=== PATIENT | female | born 2005 | race Caucasian/White ===

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

== ENCOUNTER 2025-03-03 08:00 | Outpatient (RCR) | payer BC, SELFPAY ==
--- NOTE | 2025-03-03 09:05 | BH.SGPN.GN ---
Behaviors/Verbalizations/Mental Status: [] Eye contact is poor. Motor activity is appropriate. Appearance is casual. Speech is Appropriate. Mood is depressed and anxious. Affect is flat. Thoughts are linear and logical. No evidence of psychosis. Reviewed daily check in sheet and no reports of suicidal ideations or intent. Client Response/Progress/Benefit: [] Pt participated at times in group discussions. Attentive. This was pt?s first day in IOP. Briefly introduced herself and discussed basic goals which included ?looking for tools and coping skills? for depression and anxiety. Also reports ?guidance though grief?. She admitted that she is anxious. Group welcomed her to the program and provided empathy and feedback for her first day in IOP which was beneficial. No progress noted as this was her first day in [facility]. Will continue in IOP to prevent decompensation, increase healthy coping, and improve functioning.? Narrative Note: []
--- NOTE | 2025-03-03 09:05 | BH.SGPN.GN ---
Behaviors/Verbalizations/Mental Status: [] Eye contact is poor. Motor activity is appropriate. Appearance is casual. Speech is Appropriate. Mood is depressed and anxious. Affect is flat. Thoughts are linear and logical. No evidence of psychosis. Reviewed daily check in sheet and no reports of suicidal ideations or intent. Client Response/Progress/Benefit: [] Pt participated at times in group discussions. Attentive. This was pt?s first day in IOP. Briefly introduced herself and discussed basic goals which included ?looking for tools and coping skills? for depression and anxiety. Also reports ?guidance though grief?. She admitted that she is anxious. Group welcomed her to the program and provided empathy and feedback for her first day in IOP which was beneficial. No progress noted as this was her first day in [facility]. Will continue in IOP to prevent decompensation, increase healthy coping, and improve functioning.? Narrative Note: []
--- NOTE | 2025-03-03 10:05 | BH.SGPN.GN ---
Behaviors/Verbalizations/Mental Status: []Pt alert and oriented, neatly dressed and groomed. Eye contact fair Motor activity appropriate. Speech within normal limits. Affect congruent, mood anxious. Thoughts linear, logical, no signs of hallucinations or delusions. Client Response/Progress/Benefit: [] Pt participated in the group discussions AEB providing input, nodding and taking notes. Attentive during psychoeducation Goal Setting. Participated during the discussion on common barriers. Pt worked with group to identify common barriers to goal setting and pt reported limited access to opportunities and negative self-talk. Group also identified benefits of goals as sense of purpose, improved self-confidence, more motivation for other goals, sense of accomplishment, and improved mental health. Pt identified personal benefits to goal setting. Benefited from increased awareness of mental health benefits of goals as well as psychoeducation on SMART goal criteria. Will continue in IOP to prevent decompensation, gain healthy coping skills, and reduce negative self-talk. ? Narrative Note: []
--- NOTE | 2025-03-03 11:05 | BH.SGPN.GN ---
Behaviors/Verbalizations/Mental Status: [] Pt alert and oriented. Appearance is casual, hygiene is appropriate. Eye contact good. Motor activity appropriate. Speech within normal limits. Affect is anxious, depressed. Mood is constricted. Thoughts linear, logical, no signs of hallucinations or delusions. Client Response/Progress/Benefit: [] Pt was engaged during discussion and experiential activity. Completed the worksheet challenging them to develop a personal SMART goal. Pt chose a SMART goal to Do 1 thing on her 'to-do' list hygiene every day this week. Believes this goal will benefit them being through feeling less stressed and overwhelmed, as well as make time for herself. Identified obstacles such as motivation and feeling overwhelmed .Benefited from this group by developing a short-term SMART goal related to mental health. Will continue IOP to prevent decompensation, stabilize mood, and improve functioning Narrative Note: []
--- NOTE | 2025-03-06 09:05 | BH.SGPN.GN ---
Behaviors/Verbalizations/Mental Status: [] Eye contact is poor. Motor activity is appropriate. Appearance is casual. Speech is Appropriate. Mood is depressed. Affect is flat. Thoughts are linear and logical. No evidence of psychosis. Reviewed daily check in sheet and no reports of suicidal ideations or intent. Client Response/Progress/Benefit: [] Pt participated at times during the group discussions. Attentive. Daily symptom tracker notes 4/5 for depression and 3/5 for anxiety/irritability. She shared several stressors which had been impacting her mental health and functioning. Participated mostly in group discussions on the importance of support and empathy rather than attempting to problem solve individuals who are struggling. Limited progress noted. Benefited from group support, enocouragement, and feedback. Will continue in IOP to prevent decompensation, stabilize mood, and increase healthy coping. Narrative Note: []
--- NOTE | 2025-03-06 11:15 | BH.SGPN.GN ---
Behaviors/Verbalizations/Mental Status: []Client alert and oriented, neatly dressed and groomed. Eye contact good. Motor activity appropriate. Speech within normal limits. Affect congruent, mood depressed and anxious. Thoughts linear, logical, no signs of hallucinations or delusions. Client Response/Progress/Benefit: [] Pt engaged participant AEB completing self-assessment worksheet and providing input throughout discussion. Pt completed worksheet identifying current self-care practices and what self-care activities Pt wants to start using. Pt selected psychological self-care to begin practicing more consistently. Pt plans to do this by ?getting more sunlight.? Appeared to benefit from completing the self-care evaluation and gaining insights into current self-care practices, as well as identifying areas in which Pt would like to improve upon. Pt will continue IOP tx to prevent decompensation, gain self-confidence, and increase distress tolerance skills. Narrative Note: []
--- NOTE | 2025-03-06 11:15 | BH.SGPN.GN ---
Behaviors/Verbalizations/Mental Status: [] Client alert and oriented, casually dressed and groomed. Eye contact fair. Motor activity appropriate. Speech within normal limits. Affect constricted, mood depressed and anxious. Thoughts linear, logical, no signs of hallucinations or delusions Client Response/Progress/Benefit: [] Client was an active participant, AEB taking notes and providing input in group discussions and activities. Attentive during psychoeducation. Client engaged during interactive discussion in which the group defined self-care and discussed its benefits. Group discussed barriers to engaging in self-care, reports connecting with barrier of feeling she doesn't deserve it. Client participated in small groups where they worked to identify common self-care ?myths?. Benefited from increased awareness of self-care, its benefits, and the consequences of not utilizing self-care strategies. Will continue IOP tx to prevent decompensation, promote healthy coping skill application, and increase functioning. Narrative Note: []
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
--- NOTE | 2025-03-07 14:23 | BH.MDN ---
Multi-Disciplinary Note Note 45-min Individual: Time Started:: 11:00 Date: 03/07/25 Purpose of session/treatment goals addressed:: Purpose of session was to build rapport, gather background information, and identify treatment goals. Eye Contact:: Good Motor Activity:: Appropriate Appearance:: Casual Speech:: Appropriate Mood:: Anxious and Depressed Affect:: Congruent Thoughts:: Linear, Logical and No evidence of hallucinations/delusions noted Staff Interventions:: psychoeducation on: (cognitive triangle), CBT techniques, rapport building, strengths perspective and treatment planning Client Response:: Client reported she was referred to IOP by her family because her brother previously completed this program and found it helpful. Client shared she has been struggling with increased mental health problems after of her father in the fall. [place] that this brought up a lot of unresolved trauma. States that her father was a drug addict and suddenly. Reports that she has been feeling guilty since this time. Didn't have a lot of contact for the past several years, and relationship was strained. Mom had called her and told her that he had passed, they had been split. Father had texted her relatively close to when he had passed. Client stated feeling guilty about not responding to her father's text messages. Client endorses feeling depressed with low energy, low motivation, anhedonia, excessive guilt, and passive thoughts of . Client denies active suicidal thoughts, plan, or intention. Client stated while she is in IOP she would like to learn healthier coping skills to manage her moods more effectively. Client also would like to work on her guilt and negative thoughts about her father's passing. Client responded well to psychoeducation about cognitive triangle and behavior activation. Client created behavior activation goal for weekend of calling back her grandma and reaching out to friends to hang out this weekend. Risks/Concerns:: Denies active suicidal ideation, plan, or intention to date. future oriented. Progress Toward Goals/Plan:: No progress observed, first week in program. Client would like to learn healthy coping skills to manage her emotions and depression more effectively. Client also would like to work on building her self-compassion and view of self. Client to continue IOP to increase healthy coping, improve view of self, and prevent decompensation. Time Stopped:: 11:45
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
--- NOTE | 2025-03-07 14:25 | BH.MTP_ITS ---
Master Treatment Plan Patient Information Program Physician:: Dr. Ellis & Dr. Andersen Primary Therapist:: Katy Low, [facility] Psychiatric Diagnoses Psychiatric Diagnoses:: Post Traumatic Stress Disorder, ADHD, and Cluster B traits Diagnosis Code(s):: F43.1 Estimated LOS Estimated LOS (in weeks):: 6 Problem/Goal #1 Problem/Goal #1 Stated Goal:: Client will reduce depression, feelings of hopelessness, and anhedonia through Intensive Outpatient Program. Description of Barriers: Potential barriers include cognitive distortions, history of difficulty making appointments on time, negative thought patterns, and sleep issues. Functional Impact: Pt presents to [facility] due to worsening depression and anxiety since the of her father. Pt reports this brought up a lot of unresolved trauma. States that her father was a drug addict and suddenly. Reports that she has been feeling guilty since this time. Didn't have a lot of contact for the past several years, and relationship was strained. Patient endorses anhedonia, low energy, fair to poor concentration, decreased appetite, worsening anxiety, intense emotional outburst, and nightmares. Objectives Objective #1: Stated Objective: Client will learn and utilize 2-3 healthy coping strategies to manage depressive symptoms. Interventions: Therapist will utilize CBT techniques to assist client with understanding the connection between thoughts, feelings and behaviors. Education will be provided on behavioral activation. Therapist will assist client in learning internal coping strategies to manage depressive symptoms, along with helping client identify triggers. Discharge Criteria: Client will have achieved this goal when can verbalize and has practiced at least 2 healthy coping strategies that successfully manage depressive symptoms. Target Date: 04/14/25 Review Date: 03/31/25 Objective #2: Stated Objective: Client will identify and replace 2-3 negative thinking patterns that reinforce feelings of depression and hopelessness. Interventions: Assist the client in identifying, challenging, and replacing dysfunctional thoughts with positive self-enhancing thoughts. Discharge Criteria: Client will have achieved this goal when can identify at least 2 negative thinking patterns and replace thoughts with rational thoughts. Target Date: 04/14/25 Review Date: 03/31/25 Problem/Goal #2 Problem/Goal #2 Stated Goal:: Client will reduce overall frequency, intensity, and duration of the anxiety so that daily functioning is not impaired.? Description of Barriers: Potential barriers include cognitive distortions, history of difficulty making appointments on time, negative thought patterns, and sleep issues. Functional Impact: Pt presents to [facility] due to worsening depression and anxiety since the of her father. Pt reports this brought up a lot of unresolved trauma. States that her father was a drug addict and suddenly. Reports that she has been feeling guilty since this time. Didn't have a lot of contact for the past several years, and relationship was strained. Patient endorses anhedonia, low energy, fair to poor concentration, decreased appetite, worsening anxiety, intense emotional outburst, and nightmares. Objectives Objective #1: Stated Objective: Client will learn and implement 2-3 calming skills to reduce overall anxiety and manage anxiety symptoms. Interventions: Therapist and group sessions will help client identify physiological warning signs of anxiety, increase awareness of thoughts that increase anxiety, and identify behaviors that reinforce anxious symptoms. Group and individual counseling will teach client calming skills to help manage anxious symptoms. Discharge Criteria: Client will have achieved this goal when can verbalize at least 2 calming skills and reports skills successfully help reduce anxious symptoms. Target Date: 04/14/25 Review Date: 03/31/25 Objective #2: Stated Objective: Client will identify 2-3 anxiety triggers and 2 coping skills to use when feeling anxious. Interventions: Therapist and group sessions will assist client in exploring what triggers anxiety and teach client coping strategies to effectively manage anxiety symptoms. Discharge Criteria: Client will have met this goal when can identify at least 2 triggers to anxiety and verbalize two healthy ways to cope with feelings of anxiety. Target Date: 04/14/25 Review Date: 03/31/25
--- NOTE | 2025-03-10 06:10 | PCM.BH.PSYEV ---
Psychiatric Evaluation Initial Evaluation Initial Evaluation: Initial Treatment Plan Patient Information Visit Information: ADMISSION DATE: 03/03/2025 EXPECTED LOS: 4-6 weeks Problems/Symptoms Problem #1:: Depression Symptom:: Sadness, hopelessness, worthlessness, anhedonia, low energy Problem #2:: Anxiety Symptom:: Rumination, worry, recent history of panic attacks and panic, nightmares, avoidance, flashbacks with triggers
--- NOTE | 2025-03-10 10:10 | BH.SGPN.GN ---
Behaviors/Verbalizations/Mental Status: [] Eye contact is good. Motor activity is appropriate. Appearance is casual. Speech is Appropriate. Mood is dysthymic. Affect is congruent. Thoughts are linear and logical. No evidence of psychosis. Client Response/Progress/Benefit: [] Pt was an active participant in group discussions. Attentive during psychoeducation on the 4 communication styles (Passive, Passive-Aggressive, Aggressive, and Assertive) and the obstacles to effective communication. Contributed during interactive discussion on the benefits of communicating effectively. Worked well with peers to identify the benefits and disadvantages to the different communication styles. Pt believes that she can be assertive with certain people and other times she can be passive and recognizes her needs don't get met when passive. Benefited from increased understanding of communication styles and how these can impact effective communication. Will continue in IOP to challenge negative thoughts, increase coping, and prevent decompensation.
--- NOTE | 2025-03-10 11:00 | BH.SGPN.GN ---
Behaviors/Verbalizations/Mental Status: []Pt alert and oriented, casually dressed and groomed. Eye contact good. Motor activity appropriate. Speech within normal limits. Affect congruent, mood anxious. Thoughts linear, logical, no signs of hallucinations or delusions. Client Response/Progress/Benefit: [] Pt responded well to session AEB Pt listening attentively to others and providing input during group discussion on the pay offs and costs of the different communication styles. Pt able to connect how current communication style impacts mental health. Connected with peers? comments about the importance of using assertive communication. Pt seemed to benefit from increasing awareness of healthy strategies to improve communication and worked with group during the experiential activity to practice assertive communication. Will continue IOP tx to prevent decompensation, gain healthy coping skills, and reduce negative thought patterns. Narrative Note: []
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
--- NOTE | 2025-03-13 09:05 | BH.SGPN.GN ---
Behaviors/Verbalizations/Mental Status: [] Eye contact is good. Motor activity is appropriate. Appearance is casual. Speech is Appropriate. Mood is depressed and irritable. Affect is congruent. Thoughts are linear and logical. No evidence of psychosis. Reviewed daily check in sheet and no reports of suicidal ideations or intent. Client Response/Progress/Benefit: [] Pt was an active participant in group discussions. Attentive. Daily symptom tracker notes 4/5 for depression and 3/5 for anxiety/agitation. Also reports 2/5 for self-harm urges. Overall reports mood and functioning are ?worse?. Mental health win is that she has been medication compliant. Shared her struggles to attend IOP due to anxiety and depression in the AM. ?I just want to be in bed?. Feeling ?bitter?. Increased grief this week with trigger being Father?s Day. Limited progress noted. Inconsistent. Will continue in IOP to prevent decompensation, stabilize mood, and improve functioning. Narrative Note: []
--- NOTE | 2025-03-13 10:15 | BH.SGPN.GN ---
Behaviors/Verbalizations/Mental Status: []Pt alert and oriented, casually dressed and groomed. Eye contact good. Motor activity appropriate. Speech within normal limits. Affect congruent, mood euthymic. Thoughts linear, logical, no signs of hallucinations or delusions. Client Response/Progress/Benefit: [] Pt an active participant in group discussions on defining conflict (internal/external) and possible benefits to conflict. Attentive during psychoeducation on conflict styles (avoidant, accommodating, competing, cooperative) and engaged during group discussion in which peers identified the benefits and consequences to each conflict style. Pt identified that she tends to be mostly the competing type and that she and her mother can ?get into it? but pt also is accommodating which can lead to resentment. Benefited from increased awareness of the impact of conflict styles in mental health. Will continue in IOP tx to reduce negative self-talk, improve daily functioning, and increase mood stability. ? Narrative Note: []
--- NOTE | 2025-03-13 11:15 | BH.SGPN.GN ---
Behaviors/Verbalizations/Mental Status: []Client alert and oriented, casually dressed and groomed. Eye contact fair. Motor activity appropriate. Speech within normal limits. Affect congruent, mood euthymic and anxious. Thoughts linear, logical, no signs of hallucinations or delusions. Client Response/Progress/Benefit: [] Pt engaged in session AEB contributing to discussion and engaging in small group. Attentive during discussion on strategies for more effectively managing conflict in personal life. Pt noted current conflict resolution style uses the most is accommodating and competing. Could connect impact this has on her mental health. Pt participated in small group for activity and did well practicing how to manage conflict scenarios. Pt given handout on fair fighting rules and how to identify common conflict barriers. Appeared to benefit from gaining strategies to help Pt better manage conflict. Will continue IOP tx improve distress tolerance, challenge distortions, and prevent decompensation.
--- NOTE | 2025-03-19 09:00 | BH.SGPN.GN ---
Behaviors/Verbalizations/Mental Status: [] Client alert and oriented, casual appearance. Eye contact good. Motor activity appropriate. Speech within normal limits. Affect congruent, mood irritable. Thoughts linear, logical, no signs of hallucinations or delusions. Reviewed client's symptom tracker, no risk for suicidal ideation, plan, or intent. Client Response/Progress/Benefit: [] Client responded well to session AEB listening to others and sharing thoughts/feelings. Client reported mental positive as showing up today despite not wanting to get out of bed. Client stated her mom helped her get here today. Client reported that she will not have positive as over the weekend effectively dealing with a complex situation with one of her friends by setting a boundary. Client noted current stressor was having to deal with Father's Day which is the first Father's Day since her father . Appeared to benefit from support from peers. Will continue IOP tx to increase healthy coping skills, improve distress tolerance, and prevent decompensation. Narrative Note: []
--- NOTE | 2025-03-19 10:00 | BH.SGPN.GN ---
Behaviors/Verbalizations/Mental Status: []Pt alert and oriented, neatly dressed and groomed. Eye contact good. Motor activity appropriate. Speech within normal limits. Affect congruent, mood depressed. Thoughts linear, logical, no signs of hallucinations or delusions. Client Response/Progress/Benefit: [] Pt was an active participant in group discussion and experiential activity. Attentive during psychoeducation on resilience and provided input throughout. Participated in interactive discussion with peers on the definition of resilience and where it comes from. Group identified that resiliency can be impacted by; past experiences, upbringing, and personality traits. Able to relate experiential activity of group juggle to topics of resilience. Worked with peers in small group in which they identified factors that contribute to resilience and did well providing ideas. Benefited from increased awareness of resilience and the factors that contribute to building resilience. Will continue in IOP tx to improve self-compassion, combat distortions, and improve daily functioning. ? Narrative Note: []
--- NOTE | 2025-03-19 11:00 | BH.SGPN.GN ---
Behaviors/Verbalizations/Mental Status: [] Eye contact is good. Motor activity is appropriate. Appearance is disheveled. Speech is Appropriate. Mood is depressed. Affect is congruent. Thoughts are linear and logical. No evidence of psychosis. Client Response/Progress/Benefit: [] Pt responded well to session AEB completing the resilience worksheet provided. Pt actively participated in the discussion and worked cooperatively with group to identify strategies to enhance each of the components discussed. Pt reports belief they already use resilience trait of ?making connections and accepting that change is part of living.? Pt was able to identify areas related to resilience to focus on in the future. Pt seemed to benefit from discussing strategies for improving personal resilience and identifying resilience traits Pt already possesses. Will continue IOP tx to prevent decompensation, stablize mood, and to increase healthy coping. Narrative Note: []
--- NOTE | 2025-03-21 09:00 | BH.SGPN.GN ---
Behaviors/Verbalizations/Mental Status: []Pt alert and oriented, neatly dressed and groomed. Eye contact fair. Motor activity appropriate. Speech within normal limits. Affect congruent, mood irritable and depressed. Thoughts linear, logical, no signs of hallucinations or delusions. Reviewed pt?s symptom tracker, no risk for suicidal ideation, plan, or intent 03/21/25. Client Response/Progress/Benefit: []Pt was an active participant in group discussions. Attentive. Able to identify mental health wins including ?I don?t really have much today, I can?t think of wins.? The group helped pt identify wins such as getting to IOP today and pt recently moving into a new place. Pt's stressor today is ?I got here late.? The group offered pt encouragement and emotional support which pt reported was helpful. Pt is feeling tired? this morning. Pt receptive to feedback from peers which pt reported was helpful. Progress noted. Benefited from group support, encouragement, and feedback. Will continue IOP tx to increase distress tolerance skills, reduce negative self-talk, and improve mood stability. Narrative Note: []
--- NOTE | 2025-03-21 10:10 | BH.SGPN.GN ---
Behaviors/Verbalizations/Mental Status:?[] Client alert and oriented, casually dressed and groomed. Eye contact good. Motor activity appropriate. Speech within normal limits. Affect congruent, mood anxious, euthymic. Thoughts linear, logical, no signs of hallucinations or delusions. Client Response/Progress/Benefit:?[] Pt engaged in session AEB client listening attentively to peers and providing input. Attentive and contributed to discussion as group worked on defining?self-confidence?and identifying benefits of?self-confidence, as well as factors that can effect?self-confidence?levels. Pt was an active participant in activity in which the group read and processed each right on the Personal Bill of Rights worksheet. Pt identified the rights they struggle with believing. Benefited from increased education on?self-confidence?and what effects it. Pt will continue IOP tx to improve view of self, challenge distorted thoughts,, and prevent decompensation.
--- NOTE | 2025-03-21 14:49 | BH.MDN ---
Multi-Disciplinary Note Note 60-min Individual: Time Started:: 11:14 Date: 03/21/25 Purpose of session/treatment goals addressed:: Purpose of session was to address goals 1 and 2 from MTP. Eye Contact:: Good Motor Activity:: Appropriate Appearance:: Casual Speech:: Appropriate Mood:: Anxious and Dysthymic Affect:: Congruent Thoughts:: Racing and No evidence of hallucinations/delusions noted Staff Interventions:: thought challenging, CBT techniques, strengths perspective, goal setting and taught coping skills Client Response:: Client reported she has been taking the new medication at night and has noticed that it is helped her with falling asleep. Client stated she did not complete the homework of writing down daily ones. Client stated she really had a hard time giving herself credit because to her a win is something much more and just getting a task done. Client and therapist discussed what her definition of a win is which she realized often means perfection in her eyes. Client recognizes her definition of what progress is or what is positive in her life often is a set up for herself as a failure. Client and therapist discussed different ways of reframing or challenging her expectations of self which often tend to lead to negative thought patterns and reinforces depressed symptoms. Therapist reviewed a thought log with client and walked through an example of how to complete. In the thought log client is to identify a negative or distorted thought she has had and answer various questions that help guide her with reframing the thought. Client encouraged to bring thought log back to next session for review. Risks/Concerns:: Denies suicidal ideation, plan, or intention to date. future oriented. Progress Toward Goals/Plan:: Progress noted with client reporting improved sleep. Client continuing to struggle with negative thoughts about self and difficulty giving herself credit for things she does. Client recognizes her high expectations of self negatively impact her view of self and perpetuate feelings of not being good enough. Client has good insight and awareness to her behaviors that negatively impact her, but struggles with applying the skills that could help manage her symptoms. Client open to completing thought log and practicing reframing negative thoughts. Plan is for client to continue IOP to improve view of self, increase consistent use of healthy coping skills, and prevent decompensation. Time Stopped:: 12:15
--- NOTE | 2025-03-25 09:05 | BH.SGPN.GN ---
Behaviors/Verbalizations/Mental Status: [] Eye contact is good. Motor activity is appropriate. Appearance is casual. Speech is Appropriate. Mood is depressed. Affect is flat. Thoughts are linear and logical. No evidence of psychosis. Reviewed daily check in sheet and no reports of suicidal ideations or intent. Client Response/Progress/Benefit: [] Pt participated at times. Shared increased anxiety and irritability. Difficulty sleeping due to rumination on health (heart issues, having a heart attack). Long-standing struggles with health anxiety however worsening since her father passed aware from unknown reasons possible related to heart. Struggling to ?shut my mind off? long enough to fall asleep. Along with all this she also chooses to quit smoking. Several stressors and mental health symptoms. Group provide support and offered feedback which was beneficial. Limited progress noted. Will continue in IOP to prevent decompensation, stabilize mood, and increase healthy coping. Narrative Note: []
--- NOTE | 2025-03-25 10:15 | BH.SGPN.GN ---
Behaviors/Verbalizations/Mental Status: []Pt alert and oriented, neatly dressed and groomed. Eye contact good. Motor activity appropriate. Speech within normal limits. Affect congruent, mood content, anxious, depressed. Thoughts linear, logical, no signs of hallucinations or delusions. Client Response/Progress/Benefit: [] Pt participated during the group discussion, providing input and remaining attentive during psychoeducation. Participated in experiential activity. Pt contributed during interactive discussion on the consequences of unhealthy expression of emotions. Worked with group to identify several consequences which included hurting relationships and isolating oneself. Contributing during interactive discussion on common potholes to effectively communicating. Pt was able to relate and make connections between the experiential activity and the overall topic, managing emotions through activity by slowing down and thought challenging. Benefited from increased awareness of how stress and emotions can impact one's ability to communicate. Will continue in IOP to prevent decompensation, increase emotional regulation skills, and improve daily functioning. Narrative Note: []
--- NOTE | 2025-03-25 11:15 | BH.SGPN.GN ---
Behaviors/Verbalizations/Mental Status: [] Eye contact is good. Motor activity is appropriate. Appearance is disheveled. Speech is Appropriate. Mood is depressed. Affect is congruent. Thoughts are linear and logical. No evidence of psychosis. Client Response/Progress/Benefit: [] Client engaged in session AEB client listening attentively to peers and providing input. Attentive during psychoeducation on 4 zones of regulation. Pt able to identify feelings and behaviors for each zone. Pt identified coping skills one can use to support self in each zone. Pt stated belief that pt is in the blue zone today. Pt reports she must do something other than rot to move herself closer to the green zone today. Benefited from increased education on zones of regulation or stages of alertness for emotions and healthy coping skills to use for each zone. Pt will continue IOP tx to prevent decompensation, increase healthy coping, and improve functioning. Narrative Note: []
--- NOTE | 2025-03-26 09:05 | BH.SGPN.GN ---
Behaviors/Verbalizations/Mental Status: [] Eye contact is good. Motor activity is appropriate. Appearance is disheveled. Speech is Appropriate. Mood is depressed and anxious. Affect is congruent. Thoughts are linear and logical. No evidence of psychosis. Reviewed daily check in sheet and no reports of suicidal ideations or intent. Client Response/Progress/Benefit: [] Pt participated at times. Attentive. Daily symptom tracker notes 5/5 for depression and 4/5 for anxiety/irritability. Emotion for today is ?tired?. Poor sleep this week due to anxiety and worry. Limited progress. Struggling with consistent attendance at IOP finding internal coping skills to help with significant ruminations and negative thoughts. Will continue in IOP to prevent decompensation, increase healthy coping, and improve functioning Narrative Note: []
--- NOTE | 2025-03-26 10:10 | BH.SGPN.GN ---
Behaviors/Verbalizations/Mental Status: [] Eye contact is good. Motor activity is appropriate. Appearance is casual. Speech is Appropriate. Mood is dysthymic. Affect is constricted. Thoughts are linear and logical. No evidence of psychosis. Client Response/Progress/Benefit: [] Pt engaged in session AEB listening attentively to others and providing input throughout. Pt engaged in activity, able to connect how it can be uncomfortable and difficult to practice acceptance when situations are out of one?s own control. Identified she is struggling with accepting past choices. Worked with peer group to define acceptance and identify the benefits that acceptance can bring. Benefits included; reduce stuckness, reduced stress, helps one to focus on situations we can change, and decreased negative self-talk. Seemed to benefit from increased awareness of the meaning as well as the importance of acceptance. Will continue in IOP to prevent decompensation, challenge distorted thoughts, and improve view of self.
--- NOTE | 2025-03-26 14:05 | BH.MDN_ITS ---
Multi-Disciplinary Note Note 60-min Individual: Time Started:: 11:30 Date: 03/26/25 Purpose of session/treatment goals addressed:: Purpose of session was to address goals 1 and 2 from MTP. Eye Contact:: Fair Motor Activity:: Appropriate Appearance:: Casual Speech:: Appropriate Mood:: Anxious and Other (sad) Affect:: Congruent Thoughts:: Linear, Logical and No evidence of hallucinations/delusions noted Staff Interventions:: thought challenging, CBT techniques, mindfulness skills, rapport building, strengths perspective and goal setting Client Response:: Client reported recently she has been experiencing difficulty with sleep due to fear that she will in her sleep. Client shared she was having significant fear of after the of her father but noted it had improved for a little while. Client stated since starting her new medication prazosin she has experienced at times moments in which if she stands up quickly she will feel dizzy or will experience increased heart rate. Client noted yesterday evening she started to notice her heart was racing which led to anxious thoughts that she is going to which resulted in her staying up the entire night. Client reported she does experience quite a few irrational fears mostly connected to fear of dying. Client and therapist therapist discussed some of her irrational fears and work through some thought challenge and looking at fax versus opinion. Client noted she will try to do the anxious thing instead of avoiding as a small way to start working on decreasing the impact her anxiety has on areas of function. Client did complete homework of identifying a thought on her provide a thought log from last session. Client stated that anxious thought had to do with her sleep and worrying about dying. Client stated she did walk through each step on the thought log but noted it did not result in her sleeping or believing the alternative thoughts. Client reported she did find it helpful though to write her thought out and will continue to practice. Client opened up about decision she made while she was a child that to the stay she continues to feel go over. Client noted she is having a hard time accepting that the past and forgiving herself or decision she has made. Client agreed because of the guilt she has over her past decisions and continues to impact her present functioning. Client somewhat agreed in order to move forward and improve her mental health eventually she will need to address and work on self forgiveness. Client stated today she plans to spend time with her dog as a form of a healthy coping skill and will be visiting her new [employer] house today. Risks/Concerns:: Denies suicide ideation, plan, intention. Future oriented. Progress Toward Goals/Plan:: Progress variable. Client continues to report negative and self-deprecating thoughts. Client also recently shared about increase in anxious thoughts about fear of dying which did negatively impact her ability to sleep last night. Client worked with therapist to identify different strategies that could help her with improving sleep and decreasing her anxious thoughts. Client open to trying guided meditation which she stated was something she has practiced in the past. Therapist also encouraged client to reexamine her nighttime routine because making a slight adjustment could benefit her. Client grappling with guilt and shame over her past and not having answers of things that could have happened to her in the past. Client's negative view of her past decisions when she was a child continued to impact her decision making and belief that she does not deserve good things. Client open to exploring sell forgiveness. Plan is for client to continue IOP to challenge negative and distorted thought patterns, improve healthy coping, and prevent decompensation. Time Stopped:: 12:30
--- NOTE | 2025-03-31 09:00 | BH.SGPN.GN ---
Behaviors/Verbalizations/Mental Status: [] Eye contact is good. Motor activity is appropriate. Appearance is casual. Speech is Appropriate. Mood is depressed. Affect is congruent. Thoughts are linear and logical. No evidence of psychosis. Reviewed daily check in sheet and pt denies any SI, plan, or intent as of this date. Client Response/Progress/Benefit: [] Pt participated when prompted. Attentive. Daily symptom tracker notes 4/5 for depression and anxiety as well as 2/5 for irritability. Mental health wins noted as showing up for group today rather than avoiding it as she had last week. Described struggling with confronting difficult topics related to her mental health but knows things cannot improve if she continues to avoid. Additional win noted as getting here on time as well. Pt noted that internalized guilt and shame continue to reinforce her depression sx and make it difficult for her to function at baseline. Would like to get more comfortable with confronting her own mental health struggles. Progress noted. Benefited from group support, encouragement, and feedback. Will continue in IOP to promote mood stability, improve healthy coping consistency, and prevent decompensation. Narrative Note: []
--- NOTE | 2025-03-31 10:05 | BH.SGPN.GN ---
Behaviors/Verbalizations/Mental Status: [] Eye contact is good. Motor activity is appropriate. Appearance is casual. Speech is Appropriate. Mood is depressed. Affect is flat. Thoughts are linear and logical. No evidence of psychosis. Client Response/Progress/Benefit: [] Pt was an active participant during interactive group discussions. Attentive during psychoeducation on the six types of boundaries (physical, emotional, intellectual, sexual, time, and material) AEB note-taking and providing input. Along with peers contributed to interactive discussion on defining what a boundary is in mental health. Pt along with peers identified challenges to setting boundaries such as guilt, feeling selfish, negative past experiences, fear of conflict, and limited knowledge on setting boundaries. Pt along with peers identified the benefits to setting boundaries such as better relationships, increased time for self-care, and increased confidence, and feeling more heard. Group discussed the mental health benefits to establishing boundaries at work, school, and home. Pt benefited from increased awareness and insight on the importance/benefit to setting health boundaries. Will continue in IOP prevent decompensation, stabilize mood, and increase healthy coping skills. Narrative Note: []
--- NOTE | 2025-03-31 11:05 | BH.SGPN.GN ---
Behaviors/Verbalizations/Mental Status: []Pt alert and oriented, neatly dressed and groomed. Eye contact good. Motor activity appropriate. Speech within normal limits. Affect congruent, mood depressed and irritable. Thoughts linear, logical, no signs of hallucinations or delusions. Client Response/Progress/Benefit: [] Client responded well to session AEB listening attentively to peers, providing input, as well as taking notes throughout. Group discussed different styles of boundary setting. Participated in small group discussion brainstorming various strategies for improving healthy boundary setting. Pt took time to complete reflection on which skills would like to implement to improve boundaries. Pt reports plan to practice self-reflection and asking herself what saying ?no? says ?yes? to. Seemed to benefit from increased awareness of how different boundary styles can impact mental health. Will continue IOP tx to prevent decompensation, improve thought challenging skills, and reduce avoidance. Narrative Note: []
--- NOTE | 2025-04-23 11:19 | BH.MDN ---
Multi-Disciplinary Note Note 60-min Individual: Time Started:: 09:10 Date: 04/23/25 Purpose of session/treatment goals addressed:: Purpose of session was to address goals 1 and 2 from MTP. Eye Contact:: Good Motor Activity:: Appropriate Appearance:: Casual Speech:: Appropriate Mood:: Euthymic Affect:: Congruent Thoughts:: Linear, Logical and No evidence of hallucinations/delusions noted Staff Interventions:: thought challenging, psychoeducation on: (complex trauma), CBT techniques and strengths perspective Client Response:: Client reported she is doing better with daily functioning for the last week and a half. Client stated she went on vacation with a friend for the last week and then the last couple days has spent time at her college apartment with friends. Client reports she finds herself to do better with functioning when she is around others that she feels some accountability to get up and get moving each day. Client therapist discussed strategies that client could implement now that she is back home which is when she typically struggles with getting out of bed and accomplishing things. Client stated she will utilize the strategy of writing consequences of staying in bed and put this next to her bedside table so she can refer to it in the mornings. Client and therapist discussed tentative discharge date of 05/09/25. Client reported the remaining time in the program she would like to focus on learning ways to manage negative belief sets and intrusive thoughts. Therapist provided psychoeducation about complex trauma and shared common core beliefs that can develop in childhood. Client connected with complex trauma psychoeducation. Client also connected with discussion about intrusive thoughts that she has which often leads to seeking reassurance. Client connected with several different types of intrusive thoughts. Client plans to purchase Overcoming Unwanted Intrusive Thoughts book to help her better understand those thoughts. Client homework is to put sticky note next to her bed to remind her of possible consequences of staying in bed all morning. Risks/Concerns:: Denies suicidal ideation, plan, or intention to date. Future oriented. Progress Toward Goals/Plan:: Progress noted with client reporting improved daily functioning, decrease in depressed and anxious symptoms, and improved ability to challenge her negative thoughts. Client expresses some concern now that she is back from vacation that she will go back to struggling with low motivation, but was open to brainstorming and planning ways to prevent that from happening. Client does continue to struggle with feelings of perfectionism, putting others ahead of her own needs, and low self-worth. Client is reporting some improvement in these areas, but could benefit from continued focus on improving these area. Plan is for client to continue IOP to improve view of self, increase consistent use of healthy coping skills, and prevent decompensation. Discussed tentative discharge to be May 09, which would be a few days before she returns to college. Client provided with individual counseling resources that are local to her college. Time Stopped:: 10:10
== END 2025-03-31 23:59 ==
LOC: BHIOP 08:00
PROVIDERS: PCP Pediatrics; Referring Provider Psychiatry & Neurology Psychiatry; Visit Provider Psychiatry & Neurology Psychiatry
DX: F43.10 Post-traumatic stress disorder, unspecified (principal); F90.9 Attention-deficit hyperactivity disorder, unspecified type
CPT/HCPCS: S9480; 90834; 90837; 90853

== ENCOUNTER 2025-04-01 07:15 | Outpatient (RCR) | payer BC, SELFPAY ==
--- NOTE | 2025-04-02 09:00 | BH.SGPN.GN ---
Behaviors/Verbalizations/Mental Status: []Pt alert and oriented, neatly dressed and groomed. Eye contact good. Motor activity appropriate. Speech within normal limits. Affect flat, mood depressed. Thoughts linear, logical, no signs of hallucinations or delusions. Reviewed pt?s symptom tracker, no risk for suicidal ideation, plan, or intent 04/02/25. Client Response/Progress/Benefit: []Pt was an active participant in group discussions. Attentive. Able to identify mental health wins including getting to IOP today instead of avoiding and trying to challenge her inappropriate guilt. Pt's stressor today is ?I?m having a problem with the girl I?ll be living with? and pt shared this is an ongoing issue with this friend. The group offered pt encouragement and emotional support which pt reported was helpful. Pt is feeling low this morning. Pt receptive to feedback from peers. Progress noted. Benefited from group support, encouragement, and feedback. Will continue IOP tx to reduce inappropriate guilt, combat distorted thoughts, and improve daily functioning. Narrative Note: []
--- NOTE | 2025-04-02 10:10 | BH.SGPN.GN ---
Behaviors/Verbalizations/Mental Status: [] Client alert and oriented, casually dressed and groomed. Eye contact good. Motor activity appropriate. Speech within normal limits. Affect congruent, mood anxious. Thoughts linear, logical, no signs of hallucinations or delusions. Client Response/Progress/Benefit: [] Pt engaged in session AEB client listening attentively to peers and providing input. Attentive and contributed to discussion as group worked on defining self-forgiveness and identifying mental health benefit. Identified benefits as: reduce guilt/shame, increase self-confidence, decrease negative self-talk, healthier relationships, ect. ?Worked in small groups to identify factors that can make self-forgiveness difficult. Pt identified a personal barrier to self-forgiveness. Benefited from increased education on self-forgiveness, benefits, and what effects it. Pt will continue IOP tx to increase utilization of healthy coping skills, challenge distortions, improve view of self, and prevent decompensation.
--- NOTE | 2025-04-02 11:15 | BH.SGPN.GN ---
Behaviors/Verbalizations/Mental Status: [] Client alert and oriented, casually dressed and groomed. Eye contact good. Motor activity appropriate. Speech within normal limits. Affect congruent, mood depressed and agitated. Thoughts linear, logical, no signs of hallucinations or delusions. Client Response/Progress/Benefit: [] Pt engaged in session AEB client listening attentively to peers and providing input. Attentive during psychoeducation on the 4 R?s of Self-Forgiveness (Responsibility, Remorse, Confucianism, Renewal). Contributed to discussion as group worked on identifying strategies for improving ability to practice self-forgiveness. Reports wanting to practice thought challenging and practicing giving herself permission to forgive herself. Engaged in self-forgiveness activity and benefited from increased education on self-forgiveness building skills. Pt will continue IOP tx to improve mood stability, increase self-compassion, and prevent decompensation. Narrative Note: []
--- NOTE | 2025-04-02 14:23 | BH.MDN ---
Multi-Disciplinary Note Note 60-min Individual: Time Started:: 12:00 Date: 04/02/25 Purpose of session/treatment goals addressed:: Purpose of session was to address goals 1 and 2 from MTP. Eye Contact:: Good Motor Activity:: Appropriate Appearance:: Casual Speech:: Appropriate Mood:: Dysthymic Affect:: Constricted Thoughts:: Linear, Logical and No evidence of hallucinations/delusions noted Staff Interventions:: thought challenging, CBT techniques, strengths perspective, goal setting and taught coping skills Time Stopped:: 13:00
--- NOTE | 2025-04-03 09:05 | BH.SGPN.GN ---
Behaviors/Verbalizations/Mental Status: [] Eye contact is good. Motor activity is appropriate. Appearance is discheveled. Speech is Appropriate. Mood is depressed. Affect is flat. Thoughts are linear and logical. No evidence of psychosis. Reviewed daily check in sheet and no reports of suicidal ideations or intent. Client Response/Progress/Benefit: [] Pt participated at times during the group discussions. Attentive. She reports ruminations regarding several psychosocial stressors regarding her father?s , her health, and her current housing issues. Admits that these thoughts have intensified her anxiety and depression as well as impacting motivation and functioning. Limited progress noted. Benefited from group support, encouragement, and feedback. Will continue in IOP to prevent decompensation, increase healthy coping, and improve functioning. Narrative Note: []
--- NOTE | 2025-04-03 10:10 | BH.SGPN.GN ---
Behaviors/Verbalizations/Mental Status: []Eye contact is good. Motor activity is appropriate. Appearance is casual. Speech is Appropriate. Mood is euthymic. Affect is congruent. Thoughts are linear and logical. No evidence of psychosis. Client Response/Progress/Benefit: [] Pt receptive to session AEB listening attentively to others and taking notes. Pt attentive and contributed throughout psychoeducation on the cognitive triangle and maintenance cycles. Pt engaged during group discussion reviewing the impact of daily activities and behaviors in either reinforcing unhealthy maintenance cycles and depression or assisting in reducing symptoms (?down? vs ?up? activities). Pt participated during interactive discussion in which pt identified their own common up activities (sitting in sun, crafting, and listen to music) and down activities (staying in bed, isolating, sleeping to avoid). Appeared to benefit from increased awareness of current behaviors and impact these have on mental health. Will continue IOP to prevent decompensation, improve view of self, and challenge distortions.
--- NOTE | 2025-04-03 10:10 | BH.SGPN.GN ---
Behaviors/Verbalizations/Mental Status: [] Eye contact is good. Motor activity is appropriate. Appearance is casual. Speech is Appropriate. Mood is depressed. Affect is flat. Thoughts are linear and logical. No evidence of psychosis. Client Response/Progress/Benefit: [] Pt receptive to session AEB listening attentively to others and taking notes. Pt attentive and contributed throughout psychoeducation on the cognitive triangle and maintenance cycles. Pt engaged during group discussion reviewing the impact of daily activities and behaviors in either reinforcing unhealthy maintenance cycles and depression or assisting in reducing symptoms (?down? vs ?up? activities). Pt participated during interactive discussion in which pts identified their own common up activities (shower, dancing, body movement, pets) and down activities (isolation, avoidance, sad music, not taking meds). Appeared to benefit from increased awareness of current behaviors and impact these have on mental health. Will continue IOP to prevent decompensation, increase healthy coping, and improve functioning. Narrative Note: []
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
--- NOTE | 2025-04-03 11:52 | PCM.BH.PN ---
Intake Vital Signs 03/14/25 14:30 04/03/25 12:00 04/03/25 12:18 Height 1.6 m 1.6 m Weight: 55.508 kg BMI 21.7 BP 83/49 L 128/93 H Pulse 111 H Intake Visit Reasons: Hypersomnolence, depression Allergies Sulfa (Sulfonamide Antibiotics) Allergy (Verified 03/14/25 14:36) Rash Medications ?Medication ?Instructions ?Recorded ?Confirmed ?Type dextroamphetamine-amphetamine ER 1 cap PO DAILY 03/14/25 03/14/25 History 20 mg 24hr capsule,extend release drospirenone 3 mg-ethinyl 1 tab PO QDAY #28 tabs 03/14/25 03/14/25 Rx estradiol 0.03 mg tablet (Carolynn (28)) bupropion HCl 150 mg 24 hr tablet, 150 mg PO DAILY #30 tabs 04/03/25 Rx extended release (Wellbutrin XL) clonidine HCl 0.1 mg tablet 0.05 mg (1/2 x 0.1 mg) PO QHS #30 04/03/25 Rx tabs HPI () History of Present Illness History provided by: patient Chief complaint: Feel racing heart and shortness of breath at bedtime after taking prazosin HPI: -Current psychiatric medications: Prazosin 1 mg -SUBJECTVE: Lexis presents for follow-up after medication change. On her initial evaluation she revealed she had not been taking her home medications including her Wellbutrin so this was discontinued, she has had problems with sleep and concerns for nightmares so prazosin 1 mg was started, antidepressants/restarting Wellbutrin held off as did not make multiple medication changes at a time. Patient presents today and said for the first couple of days she felt she was sleeping better but about the third evening she noticed after she would take it she would go on to develop tachycardia, shortness of breath, would intermittently feel lightheaded. Noticed that she would still feel like that sometimes in the morning and she is interested in changing this medication. She has never tried clonidine before and would be willing to try this. She also would like to be started on antidepressant due to continued low mood and low energy. She notes that she was on the lowest dose of Wellbutrin and would like to retrial this, discussed SSRIs and she said she has had sexual side effects in the past from Prozac even though it did help with mood and would like to retrial Wellbutrin first. Exam Mental Status Exam- Psych () Appearance casually dressed, adequately groomed and no apparent distress Attitude cooperative and calm Activity/Motor Behavior MSE activity/motor behavior finding no adventitious movements Speech regular rate and regular volume Mood euythmic Affect full range Thought Process linear and logical Thought Content no delusions and no hallucinations Suicidal Ideation none Homicidal Ideation none Attention intact Concentration intact Sensorium/Orientation awake and alert Memory/Cognition intact Insight fair Judgement fair Assessment & Plan () Assessment & Plan (1) PTSD (post-traumatic stress disorder): Plan: Patient reports adverse effects with prazosin, sounds as though she is having a drop in blood pressure causing her tachycardia and perceived feelings of shortness of breath as well as some lightheadedness but she did think it helped her sleep and the couple nights she did not take it she noted she had nightmares. Patient willing to try low-dose of clonidine which it is possible she may tolerate better though advised that she still take precautions with standing slowly etc. and patient verbalized understanding. Will also restart Wellbutrin, this may help energy as well as depression, may ultimately need up titrate to higher dose but will start and follow closely Medications: New clonidine HCl 0.05 mg (1/2 x 0.1 mg) PO QHS 30 tabs 0RF bupropion HCl XL 150 mg PO DAILY 30 tabs 0RF Discontinued prazosin Discontinued Reason: Ordered 1 mg PO QHS 30 caps 0RF F43.10 - Post-traumatic stress disorder, unspecified Visit Details Comments: Spent a total of [ ] minutes on the date of the service which included [ ]. Charges/Coding Behavior Health Behavior Health EST Pt E/M: 36010 Est Pt Level IV
--- NOTE | 2025-04-03 12:13 | BH.NA ---
Physical Data Vital Signs Pulse Rate: 111 Blood Pressure: 128/93 Medical Problems/History Family History Family History Mother Hypertension Grandfather Cancer Grandmother MYLK2-related hypertropic cardiomyopathy RN Summary of Impressions Impressions Recommendations Impression: General Medical Conditions: BP and HR taken at this time per Dr. Coats request and results reviewed with Dr. Andersen
[2025-04-03 12:18] VITALS: BP 128/93; PULSE 111
--- NOTE | 2025-04-07 09:05 | BH.SGPN.GN ---
Behaviors/Verbalizations/Mental Status: [] Eye contact is good. Motor activity is appropriate. Appearance is casual. Speech is Appropriate. Mood is depressed. Affect is flat. Thoughts are linear and logical. No evidence of psychosis. Reviewed daily check in sheet notes 2/5 for suicidal thoughts and 0/5 for intent. Therapist notified. Client Response/Progress/Benefit: [] Pt participated at times during the group discussion. Daily symptom tracker notes 4/5 for depression and anxiety. Difficulty identifying mental health wins and healthy habits Very brief check-in. Less engaged than baseline. Elaborated on one stressors regarding family however overall distracted and disengaged today. Limited progress. Benefited from group support, encouragement, and feedback. Will continue in IOP to prevent decompensation, increase healthy coping, and improve functioning. Narrative Note: []
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
--- NOTE | 2025-04-07 11:15 | BH.SGPN.GN ---
Behaviors/Verbalizations/Mental Status: [] Eye contact is good. Motor activity is appropriate. Appearance is casual. Speech is Appropriate. Mood is dysthymic. Affect is congruent. Thoughts are linear and logical. No evidence of psychosis. Client Response/Progress/Benefit: [] Pt was an engaged participant AEB listening attentively to others and providing input throughout group. Pt along with group members, identified strategies to manage inappropriate guilt. Identified a personal example of inappropriate guilt as ?feeling responsible for dad's ? Pt wants to work on combatting inappropriate guilt by challenge distortions and emotional reasoning.? Pt seemed to benefit from learning about strategies to manage appropriate and inappropriate guilt. Pt to continue IOP tx to prevent decompensation, gain healthy coping skills, and increase healthy thought patterns. Narrative Note: []
--- NOTE | 2025-04-09 10:15 | BH.SGPN.GN ---
Behaviors/Verbalizations/Mental Status: [] Client alert and oriented, casually dressed and groomed. Eye contact good. Motor activity appropriate. Speech within normal limits. Affect congruent, mood anxious and depressed. Thoughts linear, logical, no signs of hallucinations or delusions. Client Response/Progress/Benefit: [] Client responded well to session AEB contributing to discussion, taking notes, and listening attentively to others. Group discussed the benefits of managed anger and anger as a secondary emotion. Client participated in anger iceberg discussion. Group reported outward personal signs of anger as lashing out verbally, physical fights, destruction of property, self-harm, and self-sabotage. Group Identified underlying emotions that contribute to anger including being dismissed, rejection, assumptions, being lied too, and micromanaging. Appeared to benefit from increased knowledge of the underlying emotions that impact anger and increased self-awareness of the internal and external consequences of anger. Client will continue IOP program to increase emotional regulation skills and prevent decompensation. Narrative Note: []
--- NOTE | 2025-04-09 11:15 | BH.SGPN.GN ---
Behaviors/Verbalizations/Mental Status: [] client alert and oriented, neatly dressed and groomed. Eye contact good. Motor activity appropriate. Speech within normal limits. Affect congruent, mood euthymic. Thoughts linear, logical, no signs of hallucinations or delusions. Client Response/Progress/Benefit: [] Client was an engaged participant throughout group AEB client providing input throughout discussion. Client contributed to the continued discussion of how people express anger as well as the underlying emotions of anger. Client participated in group activity that highlighted strategies to cope with anger. Group brainstormed healthy coping skills to help prevent anger and cope with it in the moment which included: mindfulness, deep breathing, journaling, going outside, and music. Client stated something she learned from today's group is better understanding her triggers and common responses when angry. Client appeared to benefit from brainstorming with the group potential strategies to manage anger in healthy ways. Recommended continued IOP to improve view of self, challenge distortions, and prevent decompensation.
--- NOTE | 2025-04-09 14:40 | BH.MDN ---
Multi-Disciplinary Note Note 45-min Individual: Time Started:: 09:10 Date: 04/09/25 Purpose of session/treatment goals addressed:: Purpose of session was to address goals 1 and 2 from MTP. Eye Contact:: Good Motor Activity:: Appropriate Appearance:: Casual Speech:: Appropriate Mood:: Depressed Affect:: Constricted Thoughts:: Linear, Logical and No evidence of hallucinations/delusions noted Time Stopped:: 09:55
--- NOTE | 2025-04-10 10:10 | BH.SGPN.GN ---
Behaviors/Verbalizations/Mental Status: [] Eye contact is good. Motor activity is appropriate. Appearance is casual. Speech is Appropriate. Mood is dysthymic. Affect is congruent. Thoughts are linear and logical. No evidence of psychosis. Client Response/Progress/Benefit: [] Client engaged participant at times during group session as evidenced by contributions during group discussions, appearing to listen to others, and taking notes. Client engaged in discussion about barriers that keep people from having difficult confrontations. Group identified potential reasons individuals avoid difficult conversations which included; feeling uncomfortable, reaction of others, fear, avoid conflict. Group also identified benefits to having crucial conversations. Pt identified things they do that impact their communication overexplain, need to be understood. Client seemed to benefit from increased awareness and education about importance of having difficult conversations and recognizing the impact of avoiding such conversations. Client to continue IOP to prevent decompensation, maintain safety, and improve functioning.
--- NOTE | 2025-04-10 11:10 | BH.SGPN.GN ---
Behaviors/Verbalizations/Mental Status: []Pt alert and oriented, casually dressed and groomed. Eye contact good. Motor activity appropriate. Speech within normal limits. Affect congruent, mood euthymic. Thoughts linear, logical, no signs of hallucinations or delusions. Client Response/Progress/Benefit: [] Pt was an active participant, engaged in activities and discussion. Pt able to identify ways they negatively contribute to crucial conversations and pt was engaged during psychoeducation of the different ways to build interpersonal effectiveness skills. Pt and peers practiced mirroring and active listening in partners. Group reviewed [employer] [employer] and used the handout to help map out how they would like a crucial conversation in their life to go. Pt identified talking to her ex-girlfriend about ?how she goes about things?. Pt appeared to benefit from learning and practicing interpersonal effectiveness skills. Pt will continue IOP tx to increase distress tolerance, reduce negative thinking patterns, and increase self-compassion. Narrative Note: []
--- NOTE | 2025-04-18 08:04 | PCM.BH.PN_ITS ---
Intake Vital Signs 03/14/25 14:30 04/03/25 12:00 04/03/25 12:18 Height 5 ft 3 in 5 ft 3 in Weight: 122 lb 6 oz BMI 21.7 BP 83/49 L 128/93 H Pulse 111 H BH Intake Allergies Sulfa (Sulfonamide Antibiotics) Allergy (Verified 03/14/25 14:36) Rash Medications 3 ?Medication ?Instructions ?Recorded ?Confirmed ?Type dextroamphetamine-amphetamine ER 1 cap PO DAILY 03/14/25 History 20 mg 24hr capsule,extend release drospirenone 3 mg-ethinyl 1 tab PO QDAY #28 tabs 03/1403/14/25 Rx estradiol 0.03 mg tablet (Carolynn (28)) bupropion HCl 150 mg 24 hr tablet, 150 mg PO DAILY #30 tabs 04/03/25 Rx extended release (Wellbutrin XL) clonidine HCl 0.1 mg tablet 0.05 mg (1/2 x 0.1 mg) PO QHS #30 04/03/25 Rx tabs HPI () History of Present Illness History provided by: patient Chief complaint: Feel racing heart and shortness of breath at bedtime after taking prazosin HPI: Lexis Love is a 19 year old female who presents today for follow up evaluation as part of [facility] admission. -Current psychiatric medications: Prazosin 1 mg -SUBJECTVE: Lexis presents for follow-up after medication change. On her initial evaluation she revealed she had not been taking her home medications including her Wellbutrin so this was discontinued, she has had problems with sleep and concerns for nightmares so prazosin 1 mg was started, antidepressants/restarting Wellbutrin held off as did not make multiple medication changes at a time. Patient presents today and said for the first couple of days she felt she was sleeping better but about the third evening she noticed after she would take it she would go on to develop tachycardia, shortness of breath, would intermittently feel lightheaded. Noticed that she would still feel like that sometimes in the morning and she is interested in changing this medication. She has never tried clonidine before and would be willing to try this. She also would like to be started on antidepressant due to continued low mood and low energy. She notes that she was on the lowest dose of Wellbutrin and would like to retrial this, discussed SSRIs and she said she has had sexual side effects in the past from Prozac even though it did help with mood and would like to retrial Wellbutrin first. Developmental History Developmental History: LEXIS is the [ ORDER]. The pt was born and raised in [ ]. Education level completed [ ]. Pt describes his/her childhood as [ ]. Assessment & Plan () Assessment & Plan (1) PTSD (post-traumatic stress disorder): Plan: Patient reports adverse effects with prazosin, sounds as though she is having a drop in blood pressure causing her tachycardia and perceived feelings of shortness of breath as well as some lightheadedness but she did think it helped her sleep and the couple nights she did not take it she noted she had nightmares. Patient willing to try low-dose of clonidine which it is possible she may tolerate better though advised that she still take precautions with standing slowly etc. and patient verbalized understanding. Will also restart Wellbutrin, this may help energy as well as depression, may ultimately need up titrate to higher dose but will start and follow closely Medications: New clonidine HCl 0.05 mg (1/2 x 0.1 mg) PO QHS 30 tabs 0RF bupropion HCl XL 150 mg PO DAILY 30 tabs 0RF Discontinued prazosin Discontinued Reason: Ordered 1 mg PO QHS 30 caps 0RF F43.10 - Post- traumatic stress disorder, unspecified Visit Details Comments: Spent a total of [ ] minutes on the date of the service which included [ ].
--- NOTE | 2025-04-23 10:10 | BH.SGPN.GN ---
Behaviors/Verbalizations/Mental Status: [] Eye contact is good. Motor activity is appropriate. Appearance is casual. Speech is Appropriate. Mood is euthymic. Affect is congruent. Thoughts are linear and logical. No evidence of psychosis. Client Response/Progress/Benefit: [] Pt responded well to session AEB actively participating throughout group. Pt was attentive throughout group activity discussing famous individuals and how they overcame failure to be successful. Pt helped group define fear of failure as well as how it can impact mental health and relationships. Participated in experiential activity and worked with group members to problem solve. Appeared to benefit from increased knowledge of what causes fear of failure and how it impacts people. Will continue IOP tx to prevent decompensation, challenge negative/distorted thoughts, and improve view of self.
--- NOTE | 2025-04-23 11:10 | BH.SGPN.GN ---
Behaviors/Verbalizations/Mental Status: []Pt alert and oriented, neatly dressed and groomed. Eye contact good. Motor activity appropriate. Speech within normal limits. Affect congruent, mood euthymic. Thoughts linear, logical, no signs of hallucinations or delusions. Client Response/Progress/Benefit: [] Pt responded well to session, engaged in the experiential activity and attentive throughout group processing. Pt reported fear of failure has kept Pt from ?putting my best foot forward in school and making new friends.? Pt completed fear of failure worksheet and was able to identify thoughts and behaviors that reinforce personal fear of failure including self-sabotaging behaviors and setting unrealistic expectations for herself. Pt participated in small group discussion regarding strategies to overcome fear of failure. Identified wanting to work on utilizing dialectical thinking and practicing acceptance. Appeared to benefit from increased knowledge of strategies to combat fear of failure and gaining self-awareness. Pt will continue IOP tx to improve daily functioning, combat negative self-talk, and increase self-confidence. Narrative Note: []
--- NOTE | 2025-04-24 09:00 | BH.SGPN.GN ---
Behaviors/Verbalizations/Mental Status: [] ?Eye contact is good. Motor activity is appropriate. Appearance is casual. Speech is Appropriate. Mood is dysthymic. Affect is congruent. Thoughts are linear and logical. No evidence of psychosis. Reviewed daily check in sheet and no reports of suicidal ideations or intent. Client Response/Progress/Benefit: [] ?Pt was an active participant in group discussions. Attentive. Did well to identify 2 mental health wins including managing to get up in time to get to group today. Discussed that this is something she has been consistently working on. Additional win noted as being able to eat three meals yesterday, explaining that this has been a goal of hers as well. Shared trying a new recipe for salmon. Stressor noted as ongoing issues in asserting her boundaries with her mother. Receptive of challenging distortions reinforcing inappropriate guilt. Progress noted. Benefited from group support, encouragement, and feedback. Will continue in IOP to prevent decompensation, promote mood stability, and increase healthy coping consistency. Narrative Note: []
--- NOTE | 2025-04-24 10:10 | BH.SGPN.GN ---
Behaviors/Verbalizations/Mental Status: [] Eye contact is good. Motor activity is appropriate. Appearance is disheveled. Speech is Appropriate. Mood is depressed. Affect is congruent. Thoughts are linear and logical. No evidence of psychosis. Client Response/Progress/Benefit: [] Pt was attentive during psychoeducation and participated in group activity. Group discussed what influences a person?s perspective and how perspective can positively or negatively impact mental health treatment. Group identified several factors that can influence perspective which include; mood, current stressors, sleep, health, hunger, and several others.?Pt appeared to benefit from increasing awareness of different perspectives and how they can affect mental health. Pt will continue IOP tx to prevent decompensation, decrease emotional dysregulation, and increase healthy coping. Narrative Note: []
--- NOTE | 2025-04-24 11:05 | BH.SGPN.GN ---
Behaviors/Verbalizations/Mental Status: []Pt alert and oriented, casually dressed and groomed. Eye contact good. Motor activity appropriate. Speech within normal limits. Affect congruent, mood engaged. Thoughts linear, logical, no signs of hallucinations or delusions. Client Response/Progress/Benefit: [] Pt was attentive and contributed to group discussion. Pt worked with group to identify strategies that can help with challenging negative perspective. Pt stated they can practice looking at positive outcomes to challenge negative perspective. Pt completed strengths exploration worksheet, identifying personal strengths. Pt able to acknowledge how these strengths are helping pt and can continue to help pt in mental health journey. Pt identified wanting to work on utilizing her strength of open-mindedness to better improve her mental health. Benefited from identifying personal strengths and strategies for enhancing use of identified strengths. Pt will continue IOP tx to increase application of healthy coping skills, improve self-confidence, and reduce negative self-talk. Narrative Note: []
--- NOTE | 2025-04-25 07:54 | PCM.BH.PN ---
Intake Vital Signs 03/14/25 14:30 04/03/25 12:00 04/03/25 12:18 04/25/25 07:55 Height 5 ft 3 in 5 ft 3 in 5 ft 3 in Weight: 122 lb 6 oz BMI 21.7 BP 83/49 L 128/93 H Pulse 111 H Intake Visit Reasons: med eval Allergies Sulfa (Sulfonamide Antibiotics) Allergy (Verified 03/14/25 14:36) Rash Medications ?Medication ?Instructions ?Recorded ?Confirmed ?Type dextroamphetamine-amphetamine ER 1 cap PO DAILY 03/14/25 03/14/25 History 20 mg 24hr capsule,extend release drospirenone 3 mg-ethinyl 1 tab PO QDAY #28 tabs 04/24/25 04/24/25 Rx estradiol 0.03 mg tablet (Carolynn (28)) bupropion HCl 300 mg 24 hr tablet, 300 mg PO DAILY #30 tabs 04/25/25 Rx extended release hydroxyzine HCl 10 mg tablet 10 mg PO QHS PRN sleep/anxiety #30 04/25/25 Rx tabs HPI () History of Present Illness History provided by: patient Chief complaint: follow up HPI: Lexis Love is a 19 year old female who presents today for follow up evaluation. Was having some difficulty with prazosin in regards to having shortness of breath and tachycardia. Did trial clonidine, but felt that her chest felt off so she discontinued as it was exacerbating anxiety. Has been taking wellbutrin and has found that this has been somewhat helpful to this point. Has been crying less since having restarted. Feels like extremes of highs and lows have been improved. Was previously on 300 mg in the past. Has been able to sleep but continues to have recurrent dreams that she feels like she is hunted for sport. Often times feels violated during these situations. Review of systems () Constitutional Reports: change in sleep pattern; Denies: fever(s), chills, change in weight or fatigue Eyes Denies: change in vision or blurry vision Ears, Nose, Mouth, Throat Denies: throat pain, neck pain or change in hearing Cardiovascular Denies: chest pain, palpitations or dyspnea Respiratory Denies: dyspnea, cough or wheezing Gastrointestinal Denies: abdominal pain, nausea, vomiting, diarrhea or constipation Genitourinary Denies: dysuria or urinary frequency Musculoskeletal Denies: back pain, neck pain, joint pain or muscle weakness Integumentary/Breast Denies: rash or new lesions Neurological Denies: headache(s), dizziness or confusion Endocrine Denies: fatigue or excessive sweating Hematologic/Lymphatic Denies: easy bruising or easy bleeding Allergic/Immunologic Denies: wheezing Exam Mental Status Exam- Psych () Appearance casually dressed, adequately groomed and no apparent distress Attitude cooperative and calm Activity/Motor Behavior MSE activity/motor behavior finding no adventitious movements Speech regular rate and regular volume Mood other (I know I need an antidepressant) Affect full range Thought Process linear and logical Thought Content no delusions and no hallucinations Suicidal Ideation none Homicidal Ideation none Attention intact Concentration intact Sensorium/Orientation awake and alert Memory/Cognition intact Insight fair Judgement fair Assessment & Plan () Assessment & Plan (1) PTSD (post-traumatic stress disorder): Plan: - Couldn't tolerate clonidine without some difficulty. - increase bupropion to 300 mg every day - Patient was informed of the risks, benefits and likely side effects of Wellbutrin. These side effects include but are not limited to appetite suppression, headache, diaphoresis, tachycardia, nausea, and insomnia. Wellbutrin can lower the seizure threshold, if you have a history of seizure disorder or have a seizure while taking the medication, please discontinue the medication and inform office immediately. - Continue in IOP Medications: New bupropion HCl XL 150 mg PO DAILY 30 tabs 0RF Discontinued prazosin Discontinued Reason: Ordered 1 mg PO QHS 30 caps 0RF F43.10 - Post-traumatic stress disorder, unspecified Charges/Coding Multi Select Codes Behavior Health Behavior Health EST Pt E/M: 91580 Est Pt Level IV
--- NOTE | 2025-04-25 10:15 | BH.SGPN.GN ---
Behaviors/Verbalizations/Mental Status: [] Client alert and oriented, casual appearance. Eye contact good. Motor activity appropriate. Speech within normal limits. Affect congruent, mood anxious. Thoughts linear, logical, no signs of hallucinations or delusions. Client Response/Progress/Benefit: []Client responded well to session AEB listening attentively to peers, taking notes, and engaging in discussions. Client attentive to psychoeducation about different styles of decision making. Client engaged in discussion about internal and external influences that impact decision making. Group identified internal influences that impact decision making to include self-talk, anxiety, mood, and past experiences. Group identified external influences that impact decision making to include opinions from others, peer pressure, societal or cultural norms, and finances. Client seemed to benefit from increased awareness and understanding of different decision making styles. Plan is for client to continue IOP to improve distress tolerance, challenge negative thoughts, and prevent decompensation.
--- NOTE | 2025-04-25 11:15 | BH.SGPN.GN ---
Behaviors/Verbalizations/Mental Status: []Pt alert and oriented, casually dressed and groomed. Eye contact good. Motor activity appropriate. Speech within normal limits. Affect congruent, mood dysthymic and anxious. Thoughts linear, logical, no signs of hallucinations or delusions. Client Response/Progress/Benefit: [] Pt took notes and contributed to group discussions and was an active participant in activity. Pt engaged in continued discussion on decision making styles and pros and cons of each. Pt actively participated in experiential activity in which the group was given a scenario and prompted to decide what they would do. Did well to actively reflect on the various factors influencing their identified decisions as well. Pt worked with group to then identify several strategies for improving healthy decision making skills. Pt shared wanting to work on improving ability to use supports and reflection on long-term consequences before making decisions. Pt appeared to benefit from learning about building healthy decision making processes. Will continue IOP tx to improve mood stability, increase distress tolerance and self-compassion, and prevent decompensation. ? Narrative Note: []
--- NOTE | 2025-04-29 10:10 | BH.SGPN.GN ---
Behaviors/Verbalizations/Mental Status: [] Eye contact is good. Motor activity is appropriate. Appearance is neat and casual. Speech is Appropriate. Mood is euthymic. Affect is congruent. Thoughts are linear and logical. No evidence of psychosis. Client Response/Progress/Benefit: [] Pt participated at times during group discussions and interactions. Attentive during psychoeducation on automatic negative thoughts (ANTS) and cognitive distortions. This group was very psychoeducation heavy. Pt did participated during interactive discussions in which peers defined and gave examples of ANTS. Participated during interactive discussion on definition of cognitive distortions and examples related to the 10 cognitive distortions presented. Client stated top three distortions she uses are overgeneralization, magnification, and personalization. Benefited from increased insight and awareness of cognitive distortions and their impact on emotions and behaviors. Will continue in IOP to promote use of healthy coping skills, improve view of self, and prevent decompensation.
--- NOTE | 2025-04-29 11:10 | BH.SGPN.GN ---
Behaviors/Verbalizations/Mental Status: []Pt alert and oriented, neatly dressed and groomed. Eye contact good. Motor activity appropriate. Speech within normal limits. Affect congruent, mood euthymic. Thoughts linear, logical, no signs of hallucinations or delusions. Client Response/Progress/Benefit: [] Client responded well to session AEB input and examples during group activity. Group discussed and practiced methods of reframing cognitive distortions. Client participated in identifying cognitive distortions when examples were provided. Client discussed in group the different strategies to overcome the distortions. Client identified connecting with dialectical as a strategy. Will continue tx to promote use of healthy coping skills and improve self-compassion. Narrative Note: []
--- NOTE | 2025-05-01 10:10 | BH.SGPN.GN ---
Behaviors/Verbalizations/Mental Status: [] Client alert and oriented, casually dressed and groomed. Eye contact good. Motor activity appropriate. Speech within normal limits. Affect congruent, mood euthymic and anxious. Thoughts linear, logical, no signs of hallucinations or delusions. Client Response/Progress/Benefit: [] Client responded well to session, contributing to discussion and engaged during the activity. Group identified the benefits of change which included: increased confidence, progressing towards goals, and improving mental and physical health. Worked with the group to identify barriers to change, which included: uncomfortable emotions such as anxiety, lack of energy, lack of supports, and negative influences. Client participated along with group in activity where they identified and discussed the emotions related to change. Benefited from increased awareness and understanding of emotions, benefits, and barriers related to change. Will continue IOP tx to improve self worth and increase emotional regulation skills. Narrative Note: [] Behaviors/Verbalizations/Mental Status: [] Client alert and oriented, casually dressed and groomed. Eye contact good. Motor activity appropriate. Speech within normal limits. Affect congruent, mood euthymic and anxious. Thoughts linear, logical, no signs of hallucinations or delusions. Client Response/Progress/Benefit: [] Client responded well to session, contributing to discussion and engaged during the activity. Group identified the benefits of change which included: increased confidence, progressing towards goals, and improving mental and physical health. Worked with the group to identify barriers to change, which included: uncomfortable emotions such as anxiety, lack of energy, lack of supports, and negative influences. Client participated along with group in activity where they identified and discussed the emotions related to change. Benefited from increased awareness and understanding of emotions, benefits, and barriers related to change. Will continue IOP tx to improve self worth and increase emotional regulation skills. Narrative Note: []
--- NOTE | 2025-05-01 11:10 | BH.SGPN.GN ---
Behaviors/Verbalizations/Mental Status: [] Client alert and oriented, casually dressed and groomed. Eye contact good. Motor activity appropriate. Speech within normal limits. Affect congruent, mood euthymic. Thoughts linear, logical, no signs of hallucinations or delusions Client Response/Progress/Benefit: [] Client responded well to session, attentive. Did well to process activity and work with group to relate the strategies used to overcome barriers in the activity to managing change in own life. Client identified a change they would like to make is to quit vaping. Client identified currently being in preparation stage for this particular change. Client stated goal is to get to one week without using. Appeared to benefit from identifying a small goal to work towards. Client will continue IOP tx to prevent decompensation, gain healthy coping skills, and improve daily functioning. Narrative Note: []
== END 2025-05-01 23:59 ==
LOC: BHIOP 07:15
PROVIDERS: PCP Pediatrics; Referring Provider Psychiatry & Neurology Psychiatry; Visit Provider Psychiatry & Neurology Psychiatry
DX: F43.10 Post-traumatic stress disorder, unspecified (principal)
CPT/HCPCS: S9480; 90834; 90837; 90853

== ENCOUNTER → 2025-05-01 | Outpatient (CLI) | payer BC, SELFPAY ==
[2025-05-06 16:09] LABS: PROLACTIN 42.0 ng/mL (4.8-33.4)
== END | disposition home or self-care (01) ==
LOC: BWCLAB 14:43
PROVIDERS: PCP Pediatrics; Visit Provider Nurse Practitioner Family
DX: R53.83 Other fatigue (principal)
CPT/HCPCS: 36415; 82627; 84146; 84402; 84403; 82626

== ENCOUNTER 2025-05-02 07:49 | Outpatient (RCR) | payer BC, SELFPAY ==
--- NOTE | 2025-05-05 09:05 | BH.SGPN.GN ---
Behaviors/Verbalizations/Mental Status: [] Eye contact is good. Motor activity is appropriate. Appearance is casual. Speech is Appropriate. Mood is depressed. Affect is flat. Thoughts are linear and logical. No evidence of psychosis. Reviewed daily check in sheet and pt reports 1/5 for suicidal thoughts and 0/5 for intent. Client Response/Progress/Benefit: [] Pt participated at times during the gropu discussions. Attentive. Daily symptom tracker notes 5/5 for depression, anxiety, and irritability. Shared with the group that she has been seeking answers regarding her father's for 10 months. Yesterday she learned that he from an accidental overdose. She reports anger at her family from keeping this information from her and is questioning thier reasoning. She was under the impression that her father intentionally overdosed which had caused guilt as she had ignored a text he sent just prior to his . She believes this is a step towards closure on the events surrounding his , however she admits to intense emotions which she is struggling with currently. No progress noted. Benefited from group support, encouragement, and feedback. Will continue in IOP to prevent decompensation and increase healthy coping skills. Narrative Note: []
--- NOTE | 2025-05-05 10:10 | BH.SGPN.GN ---
Behaviors/Verbalizations/Mental Status: []Eye contact is good. Motor activity is appropriate. Appearance is casual. Speech is Appropriate. Mood is anxious. Affect is congruent. Thoughts are linear and logical. No evidence of psychosis. Client Response/Progress/Benefit: []Pt was an active participant in group discussions. Attentive during psychoeducation on the 4 communication styles (Passive, Passive-Aggressive, Aggressive, and Assertive) and the obstacles to effective communication. Contributed during interactive discussion on the benefits of communicating effectively. Worked well with peers to identify the benefits and disadvantages to the different communication styles. Pt believes that she has a blend of passive and passive aggressive communication styles. Benefited from increased understanding of communication styles and how these can impact effective communication. Will continue in IOP to promote use of healthy coping, challenge negative thoughts, and prevent decompensation. Narrative Note: []
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
--- NOTE | 2025-05-06 10:00 | BH.SGPN.GN ---
Behaviors/Verbalizations/Mental Status: [] Eye contact is good. Motor activity is appropriate. Appearance is casual. Speech is Appropriate. Mood is euthymic. Affect is full. Thoughts are linear and logical. No evidence of psychosis. Client Response/Progress/Benefit: [] Pt responded well to session, attentive and engaged. Group participated in the discussion defining stigma as well as what stigma has kept pt's from doing in their lives. Pt stated mental health stigma often causes her to not take breaks and feel pressure to push herself. Pt worked with peers to begin discussion of what reinforces stigma, both socially and internally, and this was discussed further in the next group. Pt appeared to benefit from learning about the different types of stigma as well as gaining awareness of how stigma has personally impacted pt. Will continue in IOP to prevent decompensation, increase healthy coping, decrease intrusive thoughts, and improve functioning. Narrative Note: []
--- NOTE | 2025-05-06 11:10 | BH.SGPN.GN ---
Behaviors/Verbalizations/Mental Status: []Pt alert and oriented, casually dressed and groomed. Eye contact good. Motor activity appropriate. Speech within normal limits. Affect congruent, mood content. Thoughts linear, logical, no signs of hallucinations or delusions. Client Response/Progress/Benefit: [] Pt engaged participant AEB participating in the activity, providing input during small group discussion, and listening attentively to others. Pt appeared to connect with discussion in the benefits of addressing mental health stigma which included: improved relationships, increased willingness to seek help, increased happiness, and improved confidence. Group brainstormed strategies to combat social and perceived stigma. Pt shared one thing pt can do to combat stigma is to decrease use of self-deprecating humor. Appeared to benefit from increasing awareness of strategies to combat stigma. Pt is to continue IOP to challenge distorted thoughts, promote healthy coping skills, and prevent decompensation.
--- NOTE | 2025-05-08 10:15 | BH.SGPN.GN ---
Behaviors/Verbalizations/Mental Status: []Client alert and oriented, casually dressed. Eye contact good. Motor activity appropriate. Speech within normal limits. Affect congruent, mood mostly euthymic, frustrated at times. Thoughts linear, logical, no signs of hallucinations or delusions. Client Response/Progress/Benefit: []Pt was an active participant AEB taking notes and engaging in group activity. Connected with the topic of pitfalls and listened to group discussion on barriers that prevent from choosing a healthier path to mental wellness. Group worked together to identify examples of personal pitfalls. These examples included; shutting down, not asking for help, negative thinking patterns, avoidance, and isolation. Pt benefited from group as Pt learned to better identify potential barriers to improving mental health symptoms. Identified personal barrier of negative self-talk and inappropriate guilt. Pt will discharge from IOP tx as pt has accomplished his tx goals and no longer meets criteria for IOP level of care. Narrative Note: []
--- NOTE | 2025-05-08 11:15 | BH.SGPN.GN ---
Behaviors/Verbalizations/Mental Status: []Client alert and oriented, casually dressed and groomed. Eye contact good. Motor activity appropriate. Speech within normal limits. Affect congruent, mood content. Thoughts linear, logical, no signs of hallucinations or delusions. Client Response/Progress/Benefit: [] Pt receptive of session, engaged throughout AEB Pt actively listening and contributing to discussion as well as taking notes.? Pt participated in the experiential activity and did well to communicate ideas with peers and manage emotions. Pt attentive as group processed how the emotions and perspective of the group impacted the activity. Pt admitted that she wanted to give up at times, but pt was able to complete the activity with peers. Group worked together to identify different coping skills to help manage pitfalls. Pt identified a pitfall they struggle with as ?regret?. Pt plans to work on their pitfall by practicing dialectical thinking and working on self-forgiveness. Benefited from identifying personal pitfalls and strategies to overcome these pitfalls. Pt will d/c and continue outpatient tx to prevent decompensation and maintain gains. ? Narrative Note: []
--- NOTE | 2025-05-08 14:12 | BH.DS_ITS ---
Discharge Summary Demographics Date of Admission:: 03/08/25 Discharge Date: 05/08/25 Presenting Problems at Admission:: Pt presents to [facility] due to worsening depression and anxiety since the of her father. Pt reports this brought up a lot of unresolved trauma. States that her father was a drug addict and suddenly. Reports that she has been feeling guilty since this time. Didn't have a lot of contact for the past several years, and relationship was strained. Patient endorses anhedonia, low energy, fair to poor concentration, decreased appetite, worsening anxiety, intense emotional outburst, and nightmares. Discharge Diagnoses:: PTSD (post-traumatic stress disorder): F43.1 Reason for Discharge:: Pt has shown treatment progress since starting [facility] with improved daily functioning and feeling ready to return to college for the fall. Treatment Progress During Treatment & Response: Progress noted with client reporting improved daily functioning over the last 2 weeks, improved ability to process grief associated with her father's passing now that she has more information about his , and overall improved utilization of healthy coping skills like opposite action and thought challenge. Per DSM 5 cross cutting scores pt's scores indicate a slight decrease in depression, no change in anxiety, and a 100% decrease in thoughts of wanting to hurt herself. Pt is returning to college next week which could be correlation to no change in anxiety. Overall pt responded well to session, however did struggle with attendance throughout program. Pt often engaged in group sessions and applied skills learned throughout program. Issues Still to be Addressed:: Pt could benefit from grief counseling, trauma treatment, and continuing to work on building self-esteem. Discharge Recommendations/Instructions:: Pt provided with outpatient mental health options that are located near her college. Pt stated she plans to reach back out to one of the places she has called to provide insurance information. Pt encouraged to reach out to that agency to get established with therapy and psychiatry. Discharge Handout
== END 2025-05-08 13:33 | disposition home or self-care (01) ==
LOC: BHIOP 07:49
PROVIDERS: PCP Pediatrics; Referring Provider Psychiatry & Neurology Psychiatry; Visit Provider Psychiatry & Neurology Psychiatry
DX: F43.10 Post-traumatic stress disorder, unspecified (principal)
CPT/HCPCS: S9480; 90837; 90853